=== PATIENT | female | born 1975 | race African-American/Black ===

== ENCOUNTER 2020-03-05 06:10 | Inpatient (IN) | payer BC ==
[2020-02-27 18:32] VITALS: BMI 52.8
[~2020-03-05 06:10] MED LIST: BUPIVACAINE HCL/PF 0.25% (2.5MG/ML) 10 ML VIAL IJ ONE
[2020-03-05] MEDS ORDERED: BUPIVACAINE HCL/PF 0.25% (2.5MG/ML) 10 ML VIAL ONE (07:34)
[2020-03-05] MEDS ORDERED: BUPIVACAINE HCL/PF 0.5% (5 MG/ML) 30 ML VIAL IJ ONE (07:42)
[2020-03-05] MEDS ORDERED: DEXAMETHASONE SOD PHOSPHATE/PF 10 MG/ML SDV ONE (07:45)
[2020-03-05] MEDS ORDERED: SUCCINYLCHOLINE CHLORIDE 200 MG/10 ML SYRINGE ONE (07:49)
[2020-03-05] MEDS ORDERED: PROPOFOL 20 ML ONE ×4 (07:49→10:08)
[2020-03-05] MEDS ORDERED: HYDROmorphone HCL/PF 1 MG/ML VIAL ONE ×2 (07:49→09:17)
[2020-03-05] MEDS ORDERED: ROCURONIUM BROMIDE 50 MG/5 ML SYRINGE ONE (07:49)
[2020-03-05] MEDS ORDERED: MIDAZOLAM HCL 2 MG/2 ML SINGLE DOSE VIAL ONE (07:51)
[2020-03-05] MEDS ORDERED: ONDANSETRON 4 MG/2 ML VIAL ONE ×2 (08:29→10:31)
[2020-03-05] MEDS ORDERED: DEXAMETHASONE SOD PHOSPHATE 4 MG/1 ML VIAL ONE ×2 (08:29→10:31)
[2020-03-05] MEDS ORDERED: ceFAZolin SODIUM 1 GM VIAL ONE (08:36)
[2020-03-05] MEDS ORDERED: BUPIVACAINE HCL/PF 0.25% (2.5MG/ML) 10 ML VIAL IJ ONE (10:29)
[2020-03-05] MEDS ORDERED: HYDROmorphone HCl 2 MG/ML VIAL IVPB PRN ×2 (10:47)
[2020-03-05] MEDS: METOCLOPRAMIDE HCL INJECTION 10 MG/2 ML VIAL IVPUSH SCH ×3 (10:58→22:03)
[2020-03-05] MEDS ORDERED: FAMOTIDINE 20 MG PREMIXED IVPB IVPB ONE (11:00)
[2020-03-05 12:08] LABS: HEMATOCRIT 36.7 % (32.4-45.2); MCH 27.4 pg (25.7-33.7); MCHC 32.6 g/dl (32.0-36.0); MEAN CELL VOLUME 84.1 fl (80-96); PLATELET COUNT 316 K/MM3 (134-434); RBC 4.36 M/mm3 (3.60-5.2)
[2020-03-05 12:14] LABS: ACTIVATED PTT 29.5 SECONDS (25.2-36.5)
[2020-03-05 12:16] LABS: ALBUMIN 3.7 g/dl (3.4-5.0); CALCIUM 8.5 mg/dl (8.5-10); CREATININE 0.7 mg/dl (0.55-1.3)
[2020-03-05 12:19] LABS: INR 1.12 (0.82-1.09); PROTHROMBIN TIME (PATIENT) 12.4 SEC (10.2-13.0)
[2020-03-05] MEDS: ONDANSETRON 4 MG/2 ML VIAL IVPUSH PRN ×2 (15:04→22:03)
[2020-03-05] MEDS: SODIUM CHLORIDE 1,000 ML IV SCH (19:05)
[2020-03-05] MEDS: FAMOTIDINE 20 MG/50 ML IVPB 20 MG/50 ML MG IVPB SCH (21:12)
[2020-03-05 22:21] LABS: HEMATOCRIT 41.6 % (32.4-45.2); MCH 27.3 pg (25.7-33.7); MCHC 31.4 g/dl (32.0-36.0); MEAN PLT VOLUME 8.5 fl (7.5-11.1); PLATELET COUNT 307 K/MM3 (134-434); RBC 4.78 M/mm3 (3.60-5.2); RDW 13.8 % (11.6-15.6); WHITE BLOOD COUNT 13.2 K/mm3 (4.0-10.8)
[2020-03-05 22:22] LABS: ALBUMIN 3.4 g/dl (3.4-5.0); BILIRUBIN,TOTAL 0.4 mg/dl (0.2-1); CALCIUM 8.4 mg/dl (8.5-10); CREATININE 0.7 mg/dl (0.55-1.3); TOT PROT 7.6 g/dl (6.4-8.2)
[2020-03-06] MEDS: ONDANSETRON 4 MG/2 ML VIAL IVPUSH PRN (05:56)
[2020-03-06] MEDS: METOCLOPRAMIDE HCL INJECTION 10 MG/2 ML VIAL IVPUSH SCH ×3 (05:56→18:08)
[2020-03-06 07:58] LABS: HEMATOCRIT 33.2 % (32.4-45.2); HEMOGLOBIN 10.9 GM/dl (10.7-15.3); MCH 27.9 pg (25.7-33.7); MCHC 32.8 g/dl (32.0-36.0); MEAN CELL VOLUME 85.3 fl (80-96); MEAN PLT VOLUME 7.7 fl (7.5-11.1); PLATELET COUNT 369 K/MM3 (134-434); RDW 13.2 % (11.6-15.6); WHITE BLOOD COUNT 13.6 K/mm3 (4.0-10.8)
[2020-03-06 08:01] LABS: ALBUMIN 3.1 g/dl (3.4-5.0); BILIRUBIN,TOTAL 0.4 mg/dl (0.2-1); CREATININE 0.5 mg/dl (0.55-1.3); TOT PROT 6.7 g/dl (6.4-8.2)
[2020-03-06] MEDS: FAMOTIDINE 20 MG/50 ML IVPB 20 MG/50 ML MG IVPB SCH (10:09)
[2020-03-06] MEDS ORDERED: ACETAMINOPHEN 325 MG TABLET (FP) PO PRN (18:24)
[2020-03-06] MEDS ORDERED: oxyCODONE HCL 5 MG TABLET PO PRN (18:24)
[2020-03-06] MEDS ORDERED: ONDANSETRON 4 MG TABLET PO PRN (18:27)
[2020-03-07] MEDS: FAMOTIDINE 20 MG TABLET PO SCH ×2 (01:24→09:01)
[2020-03-07] MEDS: METOCLOPRAMIDE HCL INJECTION 10 MG/2 ML VIAL IVPUSH SCH ×2 (01:25→06:02)
[2020-03-07] MEDS: SODIUM CHLORIDE 1,000 ML IV SCH (08:03)
[2020-03-07] MEDS: LACTATED RINGERS SOLUTION 1,000 ML IV SCH (08:03)
[2020-03-07] MEDS: FAMOTIDINE 20 MG/50 ML IVPB 20 MG/50 ML MG IVPB SCH (08:04)
[2020-03-07 08:17] VITALS: BP 143/83; PULSE 89; TEMP 99.4
[2020-03-07] MEDS ORDERED: ONDANSETRON *ODT* 4 MG TABLET SL PRN (08:22)
== END 2020-03-07 10:07 | disposition home or self-care (01) | DRG 621 ==
LOC: FM/S 06:10
PROVIDERS: ADMIT Surgery; ATTEND Surgery
PROC: 0DB64Z3 Excision of Stomach, Percutaneous Endoscopic Approach, Vertical (ICD-10-PCS; principal; 2020-03-05 08:49)
PROC: 0FB24ZX Excision of Left Lobe Liver, Percutaneous Endoscopic Approach, Diagnostic (ICD-10-PCS; 2020-03-05 08:49)
DX: E66.01 Morbid (severe) obesity due to excess calories (principal); Z68.43 Body mass index [BMI] 50.0-59.9, adult; R16.0 Hepatomegaly, not elsewhere classified; K29.50 Unspecified chronic gastritis without bleeding
CPT/HCPCS: 36415; 74240-TC-FY; 80053; 81025; 85027; 85610; 85730; 86850; 86900; 86901; 87902; 88305-TC; 94760

== ENCOUNTER 2021-06-18 13:05 | Observation (INO) | payer BC ==
[2021-06-18] MEDS ORDERED: SODIUM CHLORIDE 0.9% 1000 ML INFUS.BAG IV ONE (15:18)
[2021-06-18 15:38] LABS: BASO % 0.5 % (0-2.0); EOS % 2.5 % (0-4.5); HEMATOCRIT 31.2 % (32.4-45.2); HEMOGLOBIN 10.2 GM/dL (10.7-15.3); LYMPH % 39.5 % (8-40); MCH 25.9 pg (25.7-33.7); MCHC 32.7 g/dl (32.0-36.0); MEAN CELL VOLUME 79.2 fl (80-96); MEAN PLT VOLUME 6.8 fl (7.5-11.1); MONO % 9.1 % (3.8-10.2); NEUT % 48.4 % (42.8-82.8); PLATELET COUNT 355 10^3/uL (134-434); RBC 3.95 M/mm3 (3.60-5.2); RDW 16.4 % (11.6-15.6); WHITE BLOOD COUNT 4.8 K/mm3 (4.0-10.0)
[2021-06-18 15:42] LABS: HCG,QUALITATIVE URINE Negative
[2021-06-18 15:43] LABS: EPI CELLS 24 /uL (0-25.1); HYALINE CASTS 1 /uL (0-3.1); URINE APPEARANCE CLEAR; URINE BILIRUBIN 1+ (NEGATIVE); URINE COLOR DK YELLOW; URINE GLUCOSE (UA) NEGATIVE (NEGATIVE); URINE KETONE TRACE (NEGATIVE); URINE LEUK ESTERASE TRACE (NEGATIVE); URINE NITRITE NEGATIVE (NEGATIVE); URINE PROTEIN TRACE (NEGATIVE); URINE WBC 8 /uL (0-25.8)
[2021-06-18 15:51] LABS: URINE BACTERIA 321 /uL (0-1359); URINE RBC 30 /uL (0-23.9)
[2021-06-18 15:59] LABS: CALCIUM 8.8 mg/dL (8.5-10.1)
[2021-06-18 16:00] LABS: ALBUMIN 3.6 g/dl (3.4-5.0); BLOOD UREA NITROGEN 6.3 mg/dL (7-18)
[2021-06-18 16:03] LABS: CREATININE 0.7 mg/dL (0.55-1.3)
[2021-06-18 16:04] LABS: BILIRUBIN,TOTAL 0.3 mg/dL (0.2-1)
[2021-06-18 16:05] LABS: TOT PROT 8.6 g/dl (6.4-8.2)
[2021-06-18] MEDS: DEXTROSE 5%-0.45% SALINE 1,000 ML IV SCH (20:36)
[2021-06-19 00:37] VITALS: BMI 30.7
[2021-06-19] MEDS: DEXTROSE 5%-0.45% SALINE 1,000 ML IV SCH (05:58)
[2021-06-19 09:13] LABS: BASO % 0.5 % (0-2.0); EOS % 2.4 % (0-4.5); HEMATOCRIT 25.7 % (32.4-45.2); HEMOGLOBIN 8.4 GM/dL (10.7-15.3); LYMPH % 34.7 % (8-40); MCH 25.7 pg (25.7-33.7); MCHC 32.6 g/dl (32.0-36.0); MEAN CELL VOLUME 78.9 fl (80-96); MEAN PLT VOLUME 7.3 fl (7.5-11.1); MONO % 9.2 % (3.8-10.2); NEUT % 53.2 % (42.8-82.8); PLATELET COUNT 293 10^3/uL (134-434); RBC 3.26 M/mm3 (3.60-5.2); RDW 16.3 % (11.6-15.6); WHITE BLOOD COUNT 3.8 K/mm3 (4.0-10.0)
[2021-06-19 09:39] LABS: CALCIUM 8.1 mg/dL (8.5-10.1)
[2021-06-19 09:43] LABS: CREATININE 0.5 mg/dL (0.55-1.3)
[2021-06-19 09:45] LABS: BILIRUBIN,TOTAL 0.2 mg/dL (0.2-1)
[2021-06-19 09:50] LABS: ALBUMIN 2.4 g/dl (3.4-5.0); TOT PROT 6.2 g/dl (6.4-8.2)
[2021-06-19] MEDS ORDERED: ONDANSETRON 4 MG/2 ML VIAL IVPUSH PRN (18:16)
[2021-06-20 09:53] LABS: BASO % 0.2 % (0-2.0); EOS % 2.9 % (0-4.5); HEMATOCRIT 26.9 % (32.4-45.2); HEMOGLOBIN 8.9 GM/dL (10.7-15.3); LYMPH % 30.4 % (8-40); MCH 25.9 pg (25.7-33.7); MEAN CELL VOLUME 78.4 fl (80-96); MONO % 9.6 % (3.8-10.2); NEUT % 56.9 % (42.8-82.8); PLATELET COUNT 310 10^3/uL (134-434); RBC 3.43 M/mm3 (3.60-5.2); RDW 16.2 % (11.6-15.6); WHITE BLOOD COUNT 3.7 K/mm3 (4.0-10.0)
[2021-06-20 10:18] LABS: ALBUMIN 2.7 g/dl (3.4-5.0); BLOOD UREA NITROGEN 4.2 mg/dL (7-18); CALCIUM 8.2 mg/dL (8.5-10.1)
[2021-06-20 10:21] LABS: CREATININE 0.5 mg/dL (0.55-1.3)
[2021-06-20 10:22] LABS: BILIRUBIN,TOTAL 0.3 mg/dL (0.2-1); TOT PROT 6.6 g/dl (6.4-8.2)
[2021-06-20] MEDS: PANTOPRAZOLE 40 MG TABLET PO SCH (10:27)
[2021-06-20] MEDS ORDERED: ACETAMINOPHEN 1000 MG/100 ML BAG IVPB PRN (13:35)
[2021-06-21 08:35] LABS: BASO % 0.5 % (0-2.0); EOS % 4.9 % (0-4.5); HEMATOCRIT 26.3 % (32.4-45.2); HEMOGLOBIN 8.9 GM/dL (10.7-15.3); LYMPH % 29.9 % (8-40); MCH 26.5 pg (25.7-33.7); MCHC 33.9 g/dl (32.0-36.0); MEAN CELL VOLUME 78.1 fl (80-96); MEAN PLT VOLUME 6.9 fl (7.5-11.1); MONO % 10.5 % (3.8-10.2); NEUT % 54.2 % (42.8-82.8); PLATELET COUNT 302 10^3/uL (134-434); RBC 3.37 M/mm3 (3.60-5.2); RDW 16.4 % (11.6-15.6); WHITE BLOOD COUNT 3.8 K/mm3 (4.0-10.0)
[2021-06-21 08:53] LABS: CALCIUM 8.3 mg/dL (8.5-10.1)
[2021-06-21 08:54] LABS: ALBUMIN 2.6 g/dl (3.4-5.0); BLOOD UREA NITROGEN 4.7 mg/dL (7-18)
[2021-06-21 08:57] LABS: CREATININE 0.5 mg/dL (0.55-1.3)
[2021-06-21 08:59] LABS: BILIRUBIN,TOTAL 0.3 mg/dL (0.2-1); TOT PROT 6.5 g/dl (6.4-8.2)
[2021-06-21] MEDS: PANTOPRAZOLE 40 MG TABLET PO SCH (10:07)
[2021-06-21] MEDS ORDERED: IRON SUCROSE INJECTION 100 MG in SODIUM CHLORIDE 95 ML IVPB ONE (12:00)
[2021-06-21 15:38] VITALS: BP 107/58; PULSE 80; TEMP 97.8
== END 2021-06-21 19:20 | disposition home or self-care (01) ==
LOC: JER 13:05 → UNDOADMOB 17:48 → JERBED 17:48 → INTOOBSV 19:47 → OBSVTOIN 19:47 → J8W 23:56 → JERBED 23:56 → J8W 06-19 09:39
PROVIDERS: ADMIT Internal Medicine; ATTEND Internal Medicine
PROC: 3E033GC Introduction of Other Therapeutic Substance into Peripheral Vein, Percutaneous Approach (ICD-10-PCS; principal; 2021-06-19)
PROC: 3E033NZ Introduction of Analgesics, Hypnotics, Sedatives into Peripheral Vein, Percutaneous Approach (ICD-10-PCS; 2021-06-19)
PROC: 3E0337Z Introduction of Electrolytic and Water Balance Substance into Peripheral Vein, Percutaneous Approach (ICD-10-PCS; 2021-06-19)
DX: N93.8 Other specified abnormal uterine and vaginal bleeding (principal); R55 Syncope and collapse; E66.9 Obesity, unspecified; Z68.30 Body mass index [BMI] 30.0-30.9, adult; Z98.84 Bariatric surgery status
CPT/HCPCS: 36415; 70450-TC; 74176-TC; 76830-TC; 80053; 80061; 81003; 82607; 84207; 84425; 84484; 84590; 84630; 84703; 85025; 86850; 86900; 86901; 87077; 87086; 87186; 93005; 93010; 93225; 93226; 93306-TC; 99285-25; C9803-CS; G0378; J1756; U0003; U0005